=== PATIENT | male | born 1975 ===

== ENCOUNTER 2021-05-30 21:45 | Emergency (ER) | payer OTHER ==
[~2021-05-30] VITALS: Ht 182.9 cm; Wt 106.6 kg
--- NOTE | 2021-05-30 22:37 | NUR ---
Spoke with patient's daughter, Dulce , stated that patient had some adjustments on his medications, patient's psychiatrist is Dr. Jesus Sánchez .
[2021-05-30] MEDS ORDERED: AMLO5TAB4 PO (22:40)
[2021-05-30] MEDS ORDERED: TRAZ-182 PO (22:40)
[2021-05-30] MEDS ORDERED: ZOLP10TA2 PO (22:40)
[2021-05-30] MEDS ORDERED: CARB200T PO (22:40)
[2021-05-30] MEDS ORDERED: CHLO100T17 PO (22:40)
[2021-05-30 22:48] LABS: MEAN CORPUSCULAR HEMOGLOBIN 28.7 uug (23.8-33.4); MEAN CORPUSCULAR VOLUME 85.1 fL (73.0-96.2); PLATELET COUNT (AUTO) 307 K/uL (152-348)
[2021-05-30 22:58] LABS: *BILIRUBIN,URIN NEGATIVE (NEGATIVE); *BLOOD, URINE NEGATIVE (NEGATIVE); *CLARITY,URINE CLEAR (CLEAR); *KETONES,URINE NEGATIVE (NEGATIVE); *UROBILINOGEN,URINE 0.2 E.U./dl (NORMAL); LEUKOCYTE ESTERASE ,URINE NEGATIVE (NEGATIVE); NITRITE, URINE NEGATIVE (NEGATIVE); UGLUCOSE NEGATIVE (NEGATIVE)
[2021-05-30 22:59] LABS: ETHANOL < 3 MG/DL (0-0)
[2021-05-30 22:59] LABS: *COLOR,URINE STRAW (YELLOW)
[2021-05-30 23:00] LABS: ACETAMINOPHEN < 2.0 ug/mL (10-30); ALANINE AMINOTRANSFERASE 91 U/L (16-63); ALKALINE PHOSPHATASE 132 U/L (50-136); ASPARTATE AMINOTRANSFERASE 48 U/L (15-37); BILIRUBIN,DIRECT 0.1 mg/dL (0.0-0.2); BILIRUBIN,TOTAL 0.5 mg/dL (0.2-1.0); CARBON DIOXIDE 30 mmol/L (21-32); CHLORIDE 102 mmol/L (98-107); CREATININE 1.8 mg/dL (0.6-1.3); GLUCOSE 102 mg/dL (74-106); POTASSIUM 3.6 mmol/L (3.5-5.1); UREA NITROGEN, BLOOD 10 mg/dL (7-18)
[2021-05-30 23:07] LABS: *AMPHETAMINE, URINE NEGATIVE (NEGATIVE); *CANNABINOID, URINE NEGATIVE (NEGATIVE); *COCCAINE, URINE NEGATIVE (NEGATIVE); *OPIATE, URINE NEGATIVE (NEGATIVE); *PHENCYCLIDINE SCREEN,URINE NEGATIVE (NEGATIVE)
--- NOTE | 2021-05-30 23:18 | NUR ---
Called Ewa from psych evaluation team to evaluate pt, stated she'll be her in an hour
--- NOTE | 2021-05-31 00:30 | NUR ---
Ewa at beside for evaluation
[2021-05-31] MEDS ORDERED: OLANZAPINE 5 MG TABLET PO ONE (00:45)
[2021-05-31] MEDS ORDERED: OLANZAPINE 10 MG VIAL IM ONE ×3 (01:00→01:06)
--- NOTE | 2021-05-31 02:14 | NUR ---
Pt in bed asleep, no distress noted
--- NOTE | 2021-05-31 02:55 | NUR ---
Pt woke up, stating he was having and episode, Dr. De Jesus notified, stayed with pt til he went back to sleep
--- NOTE | 2021-05-31 03:05 | NUR ---
Pt woke up, sitting on bed. Provided another blanket
[2021-05-31] MEDS ORDERED: diphenhydrAMINE 50 MG/1 ML VIAL IM ONE (03:15)
[2021-05-31] MEDS ORDERED: HALOPERIDOL LACTATE 5 MG/1 ML VIAL IM ONE ×2 (03:15→07:00)
--- NOTE | 2021-05-31 03:20 | NUR ---
Pt also stating that he is going to "fuck people up".
--- NOTE | 2021-05-31 03:20 | NUR ---
Pt agitated, walking back and forth in room, gave haldol and benadryl IM
[2021-05-31] MEDS ORDERED: diphenhydrAMINE 50 MG/1 ML VIAL ONE (03:24)
[2021-05-31] MEDS ORDERED: HALOPERIDOL LACTATE 5 MG/1 ML VIAL ONE ×2 (03:24→07:10)
--- NOTE | 2021-05-31 04:08 | NUR ---
Spoke with Pt's daughter, Dulce Vann and gave updates about Pt, contact number is .
--- NOTE | 2021-05-31 04:15 | NUR ---
Pt is calm and cooperative now
--- NOTE | 2021-05-31 05:01 | NUR ---
Pt still in bed, calm, no distress noted
--- NOTE | 2021-05-31 05:31 | NUR ---
Spoke with Pt's daughter Dulce, she requested pt be put on [id number] and help with transfer to other facility.
--- NOTE | 2021-05-31 06:45 | NUR ---
Pt in bed sleeping
--- NOTE | 2021-05-31 08:04 | NUR ---
PT IS IN BED, BUT AGITATED AND VERBALLY ABUSIVE TO HOSPITAL STAFF. CONTINUE TO MONITOR THE PT.
--- NOTE | 2021-05-31 08:46 | NUR ---
PT IS SLEEPING COMFORTABLY IN BED NOW. NO S/S OF DISTRESS. CONTINUE TO MONITOR THE PT.
--- NOTE | 2021-05-31 08:55 | NUR ---
PT's BERRY POMPA CALLED TO [facility] ER. DR HEART TALKED TO ALETHA ABOUT PT's MENTAL HEALTH PROBLEMS.
--- NOTE | 2021-05-31 09:31 | NUR ---
PT ATE BREAKFAST. PT IS FALLOWING DIRECTIONS, NO AGITATION. PT IS WATCHING TV. NO S/S OF DISTRESS AT THIS TIME.
--- NOTE | 2021-05-31 09:52 | NUR ---
PT DENIES SUICIDAL THOUGHTS, PT DENIES HOMICIDAL IDIATION.
--- NOTE | 2021-05-31 10:11 | NUR ---
DR HEART TALKED TO CRISIS BILLING CUSTOMER SERVICE REPRESENTATIVE JERMAINE TO DISCUSS PT's CASE. CRISIS BILLING CUSTOMER SERVICE REPRESENTATIVE JERMAINE TALKED TO THE PT OVER THE PHONE TO DISCUSS HIS PLANS AFTER DISCHARGE FROM [facility].
--- NOTE | 2021-05-31 10:31 | NUR ---
DR HEART TALKED TO CRISIS BILLBOARD INSTALLER JERMAINE ABOUT PT's DICHARGE. DR HEART TALKED TO THE PT. PT WERBALISED THAT HE WANTS TO LEAVE HOSPITAL BY [facility]AX[facility] , MEET HIS FRIENDS AT [facility] AND GO TO HOME AFTER THIS. PT WAS NOT SHOWING S/S OF AGITATION OR PSYCHOSIS. PT WAS D/C'd FROM [facility] ER. D/C INSTRUCTIONS WERE GIVEN TO THE PT . PT WERBALISED FULL UNDERSTANDING OF D/C INSTRUCTIONS. PT LEFT HOSPITAL ER BY [facility].
[2021-05-31 10:54] VITALS: BP 137/79
== END 2021-05-31 10:56 | disposition home or self-care (01) ==
LOC: ER 21:55
DX: F31.2 Bipolar disorder, current episode manic severe with psychotic features (principal); N18.9 Chronic kidney disease, unspecified; Z79.899 Other long term (current) drug therapy; Z88.8 Allergy status to other drugs, medicaments and biological substances; Z20.822 Contact with and (suspected) exposure to COVID-19; G47.00 Insomnia, unspecified; R03.0 Elevated blood-pressure reading, without diagnosis of hypertension
CPT/HCPCS: 36415; 80048; 80076; 80299; 80307; 80320; 81003; 85025; 87426; 93005; 96372 ×2; 99285; J1200; J1630 ×2; A4663; G0480; J2358